=== PATIENT | male | born 1945 | race Caucasian/White ===

== ENCOUNTER 2022-03-12 07:04 | Inpatient (IN) | payer MEDICARE, OTHER ==
[~2022-03-12] VITALS: Ht 182.9 cm; Wt 68.0 kg
--- NOTE | 2022-03-12 07:20 | NUR ---
hooked to monitor
--- NOTE | 2022-03-12 07:30 | NUR ---
PT ARRIVING FROM [facility]: [id number] [phone] [place]
--- NOTE | 2022-03-12 07:30 | NUR ---
established iv line right ac 20g infusing
--- NOTE | 2022-03-12 07:51 | NUR ---
BLOOD DRAWN AND COLLECTED BY PHLEB AT BEDSIDE
--- NOTE | 2022-03-12 07:59 | NUR ---
dialysis access permacath present at right upper chest
--- NOTE | 2022-03-12 08:00 | NUR ---
per patient, do not use his left arm, for fistula placement.
--- NOTE | 2022-03-12 08:07 | NUR ---
covid swab taken sent to lab
[2022-03-12 08:17] LABS: BASOPHILS % (AUTO) 0.3 % (0.0-2.0); EOSINOPHILS % (AUTO) 0.1 % (0.0-6.0); HEMATOCRIT 30 % (39-51); HEMOGLOBIN 9.9 g/dL (13.5-17.5); LYMPHOCYTES # (AUTO) 0.2 K/uL (0.8-4.8); LYMPHOCYTES % (AUTO) 1.6 % (20.0-44.0); MEAN CORPUSCULAR HGB CONC 33 g/dl (31.0-36.0); MEAN CORPUSCULAR VOLUME 101 fL (80-96); MONOCYTES # (AUTO) 0.6 K/uL (0.1-1.30); NEUTROPHILS # (AUTO) 14.5 K/uL (1.8-8.9); PLATELET COUNT (AUTO) 225 K/uL (150-450); WHITE BLOOD COUNT (AUTO) 15.4 K/uL (4.3-11.0)
[2022-03-12 08:26] LABS: CALCIUM, SERUM 7.4 mg/dL (8.5-10.1); CARBON DIOXIDE 26 mmol/L (21-32); CHLORIDE 96 mmol/L (98-107); CREATININE 4.9 mg/dL (0.6-1.3); GLUCOSE 119 mg/dL (74-106); SODIUM SERUM 137 mmol/L (136-145); UREA NITROGEN, BLOOD 66 mg/dL (7-18)
--- NOTE | 2022-03-12 08:30 | NUR ---
MOVE SHEET SUBMITTED.
[2022-03-12] MEDS ORDERED: PANT40TA49 PO (09:20)
[2022-03-12] MEDS ORDERED: QUET100T PO (09:20)
[2022-03-12] MEDS ORDERED: PRED20TA PO (09:20)
[2022-03-12] MEDS ORDERED: MAGN400T26 PO (09:20)
[2022-03-12] MEDS ORDERED: ESCI10TA PO (09:20)
[2022-03-12] MEDS ORDERED: METO25TA20 PO (09:20)
[2022-03-12] MEDS ORDERED: DIAZ2TAB3 PO (09:20)
[2022-03-12] MEDS ORDERED: INSU100V7 SQ (09:20)
[2022-03-12] MEDS ORDERED: ROPI1TAB6 PO (09:20)
[2022-03-12] MEDS ORDERED: TAMS-12 PO (09:20)
[2022-03-12] MEDS ORDERED: LAMO150T6 PO (09:20)
[2022-03-12] MEDS ORDERED: INSU100I14 SQ (09:20)
[2022-03-12 09:45] LABS: MAGNESIUM 2.3 mg/dL (1.8-2.4); PHOSPHORUS 6.1 mg/dL (2.5-4.9)
--- NOTE | 2022-03-12 09:57 | NUR ---
development technician at bedside
--- NOTE | 2022-03-12 10:04 | NUR ---
DR HDZ SPEAKING W/ DR. DEGROOT
--- NOTE | 2022-03-12 11:00 | NUR ---
[facility] CALLED TENT WORKER PAGED.
[2022-03-12] MEDS ORDERED: Z GUARD REMEDY 4 OZ OINT TP PRN (12:00)
[2022-03-12] MEDS ORDERED: MAGNESIUM HYDROXIDE 30 ML UDC PO PRN (12:00)
[2022-03-12] MEDS ORDERED: ACETAMINOPHEN 325 MG TABLET PO PRN (12:00)
[2022-03-12] MEDS ORDERED: ONDANSETRON HCL/PF 4 MG/2 ML VIAL IVP PRN (12:00)
[2022-03-12] MEDS ORDERED: MAG HYDROX/AL HYDROX/SIMETH 30 ML UDC PO PRN (12:00)
[2022-03-12] MEDS: BLOOD SUGAR DIAGNOSTIC 1 EACH STRIP VI SCH ×2 (12:15→17:30)
--- NOTE | 2022-03-12 13:46 | NUR ---
PT RETURNED FROM RADIOLOGY
[2022-03-12] MEDS: CEFEPIME 1 GM in IV D5W 50 ML IV SCH (13:50)
--- NOTE | 2022-03-12 19:35 | NUR ---
RECEIVED REPORT FROM YAS MORILLO. PATIENT IS FOR ADMISSION. HE MISSED HD SINCE THURSDAY. CAME WITH CC OF GEN WEAKNESS. WITH IV LINE ON RIGHT AC G20. WITH RIGHT CHEST PERMACATH FOR HD. PATIENT IS AAOX4. ABLE TO MAKE NEEDS KNOWN. VITALS CHECKED.
--- NOTE | 2022-03-12 21:35 | NUR ---
RN NOTES KAT CALLED FROM ER AND GAVE REPORT AT 2134.
--- NOTE | 2022-03-12 21:37 | NUR ---
REPORT GIVEN TO YAS RAYMOND
--- NOTE | 2022-03-12 22:42 | NUR ---
URINE SPECIMEN SENT TO LAB
--- NOTE | 2022-03-12 22:50 | NUR ---
SHRIMP CLEANER NOTES RECEIVED PATIENT FROM ER VIA GHAZAL AT 2250 . PATIENT IS A/O TIMES 4. NO PAIN NOTED. NO SOB NOTED. NO DISTRESS NOTED.ON ROOM AIR AND TOLERATING WELL. VITAL SIGNS IN NORMAL RANGES. RIGHT CHEST WALL LUIS ALBERTO CATH INTACT AND PATNET. RIGHT AC 20 G IV SITE INTACT AND FLUSHING WELL SL. SKIN ASSESMENT DONE. NOTED WITH RIGHT AND LEFT BIG TOE DRYNESS.LEFT ARM SCAB AND RIGHT INDEX FINGER ABRASION. ALL THE BELONGINGS ACCOUNTED AND SIGNED FOR. ONE T SHIRT WAS MISSING. CALLED ER AND THEY DROP OFF THE T SHIRT. PATIENT WAS MAD FOR MISSING T SHIRT. ALL SAFETY MEASURES IN PLACE. BED LOCKED IN THE LOWEST POSITION. CALL LIGHT AND TABLE IN EASY REACH. SIDE RAILS UP TIMES 2. WILL CONTINUE TO MONITOR CLOSELY.
--- NOTE | 2022-03-12 22:54 | NUR ---
TRANSFERRED TO ROOM VIA ACLS
[2022-03-12 23:08] LABS: BILIRUBIN,URINE NEGATIVE (NEGATIVE); COLOR,URINE YELLOW (YELLOW); LEUKOCYTE ESTERASE ,URINE NEGATIVE (NEGATIVE); NITRITE, URINE NEGATIVE (NEGATIVE); PH,URINE 5.5 (5.0-8.0); PROTEIN,URINE 1+ mg/dl (NEGATIVE); UGLUCOSE TRACE mg/dL (NEGATIVE); UROBILINOGEN,URINE 0.2 EU/dL (0.2)
[2022-03-12 23:10] LABS: BACTERIA,URINE Few /HPF (None Seen); WBC,URINE 0-2 /HPF (0-3)
[2022-03-13] VITALS: BP 123/72
[2022-03-13 04:00] VITALS: BP 120/69
--- NOTE | 2022-03-13 06:17 | NUR ---
RN NOTES BLOOD SUGAR NOTED 159. PATIENT REFUSED INSULIN.OFFERED AND EXPLAINED, STILL REFUSING. RESPECT PATIENT'S RIGHT.
--- NOTE | 2022-03-13 06:36 | NUR ---
TREE CLIMBER CLOSING NOTES PATIENT IS A/O TIMES 4. RESTINH ON HIS BED.NO PAIN NOTED. NO SOB NOTED. NO DISTRESS NOTED.ON ROOM AIR AND TOLERATING WELL. VITAL SIGNS IN NORMAL RANGES. RIGHT CHEST WALL LUIS ALBERTO CATH INTACT AND PATNET. RIGHT AC 20 G IV SITE INTACT AND FLUSHING WELL SL. ALL SAFETY MEASURES IN PLACE. BED LOCKED IN THE LOWEST POSITION. CALL LIGHT AND TABLE IN EASY REACH. SIDE RAILS UP TIMES 2. WILL ENDORSE FOR VALDO..
[2022-03-13 07:00] LABS: BASOPHILS # (AUTO) 0.1 K/uL (0.0-0.2); BASOPHILS % (AUTO) 0.8 % (0.0-2.0); EOSINOPHILS % (AUTO) 0.2 % (0.0-6.0); HEMATOCRIT 29 % (39-51); HEMOGLOBIN 9.6 g/dL (13.5-17.5); LYMPHOCYTES # (AUTO) 0.2 K/uL (0.8-4.8); LYMPHOCYTES % (AUTO) 1.9 % (20.0-44.0); MEAN CORPUSCULAR HGB CONC 34 g/dl (31.0-36.0); MEAN CORPUSCULAR VOLUME 100 fL (80-96); MONOCYTES # (AUTO) 0.4 K/uL (0.1-1.30); MONOCYTES % (AUTO) 5.3 % (2.0-12.0); NEUTROPHILS # (AUTO) 7.5 K/uL (1.8-8.9); NEUTROPHILS % (AUTO) 91.8 % (43.0-81.0); PLATELET COUNT (AUTO) 188 K/uL (150-450); RED BLOOD CELL COUNT(AUTO) 2.88 MIL/uL (4.5-6.0); WHITE BLOOD COUNT (AUTO) 8.2 K/uL (4.3-11.0)
[2022-03-13 07:23] LABS: CALCIUM, SERUM 7.3 mg/dL (8.5-10.1); CARBON DIOXIDE 22 mmol/L (21-32); CHLORIDE 98 mmol/L (98-107); CREATININE 4.8 mg/dL (0.6-1.3); GLUCOSE 154 mg/dL (74-106); MAGNESIUM 2.4 mg/dL (1.8-2.4); PHOSPHORUS 6.7 mg/dL (2.5-4.9); POTASSIUM 3.7 mmol/L (3.5-5.1); SODIUM SERUM 139 mmol/L (136-145); UREA NITROGEN, BLOOD 71 mg/dL (7-18)
--- NOTE | 2022-03-13 07:40 | NUR ---
TELE OPENING RN NOTES RECEIVED PATIENT LYING IN BED, A/O TIMES 4. ON ROOM AIR AND TOLERATING WELL. NO SIGNS OF RESPIRATORY OR CARDIAC DISTRESS. RIGHT CHEST WALL LUIS ALBERTO CATH INTACT AND PATENT. RIGHT AC 20 G IV SITE INTACT AND FLUSHING WELL. ALL SAFETY MEASURES IN PLACE. BED LOCKED IN THE LOWEST POSITION. CALL LIGHT AND TABLE IN EASY REACH. SIDE RAILS UP TIMES 2. WILL CONTINUE TO MONITOR CLOSELY.
[2022-03-13 08:00] VITALS: BP 125/67
[2022-03-13] MEDS: BLOOD SUGAR DIAGNOSTIC 1 EACH STRIP VI SCH ×5 (08:53→21:35)
--- NOTE | 2022-03-13 09:07 | NUR ---
WOUND CARE CONSULT: PT PRESENTS WITH DRY WOUND TO RT INDEX FINGER AND DRY ESCHARS TO LEFT ARM, PRESENT ON ADMISSION. SURGICAL CONSULT CALLED TO DR SMITH. RECOMMENDATIONS MADE FOR SKIN PROTECTION. DISCUSSED WITH NURSING STAFF. MD IN AGREEMENT WITH PLAN OF CARE.
[2022-03-13] MEDS: CEFEPIME 1 GM in IV D5W 50 ML IV SCH (12:38)
[2022-03-13] MEDS: *INSULIN REGULAR(HUMULIN R)HUM 100 UNIT/ML VIAL SQ PRN (12:42)
[2022-03-13] MEDS: INSULIN REGULAR, HUMAN 100 UNIT/ML 3 ML VIAL SQ PRN (16:44)
--- NOTE | 2022-03-13 18:35 | NUR ---
TITLE LAWYER CLOSING NOTES PATIENT IS AWAKE, A/O X 4. NO C/O PAIN OR DISCOMFORT NOTED. NO SOB OR RESPIRATORY DISTRESS NOTED. ON ROOM AIR TOLERATING WELL AT 100% SPO2. VITAL SIGNS IN NORMAL RANGES. RIGHT CHEST WALL LUIS ALBERTO CATH INTACT AND PATENT. RIGHT AC 20 G IV SITE INTACT AND FLUSHING WELL SL. DUE MEDS GIVEN. BEHAVIORAL ISSUES NOTED SUCH YELLING, PATIENT KEPT ON ASKING FOR PSYCHIATRIC EVALUATION. STILL FOR PSYCH CONSULT. ALL SAFETY MEASURES IN PLACE. BED LOCKED IN THE LOWEST POSITION. CALL LIGHT AND TABLE IN EASY REACH. SIDE RAILS UP TIMES 2. WILL ENDORSE FOR VALDO..
--- NOTE | 2022-03-13 19:56 | NUR ---
TELE OPENING RN NOTES RECEIVED PATIENT LYING IN BED AAOX4 ABLE TO MAKE NEEDS KNOWN,ON ROOM AIR AND TOLERATING WELL. NO SIGNS SOB/DISTRESS NOTED,NO COMPLAIN OF PAIN/DISCOMFORT AT THIS TIME,RIGHT CHEST WALL LUIS ALBERTO CATH AND RIGHT AC 20 G IV SITE INTACT AND PATENT. ALL SAFETY MEASURES IN PLACE. BED LOCKED IN THE LOWEST POSITION. CALL LIGHT AND TABLE IN EASY REACH. SIDE RAILS UP TIMES 2. WILL CONTINUE TO MONITOR.
[2022-03-13 20:00] VITALS: BP 126/71
[2022-03-14] VITALS: BP 127/56
[2022-03-14 05:00] VITALS: BP 137/74
--- NOTE | 2022-03-14 06:19 | NUR ---
UPPERS EDGE BURNISHER CLOSING NOTE; PATIENT LYING IN BED AAOX4 ABLE TO MAKE NEEDS KNOWN,ON ROOM AIR AND TOLERATING WELL. NO SIGNS SOB/DISTRESS NOTED,NO COMPLAIN OF PAIN/DISCOMFORT DURING SHIFT,DUE MEDS GIVEN ORDER,ALL NEEDS ATTENED,RIGHT CHEST WALL LUIS ALBERTO CATH AND RIGHT AC 20 G IV SITE INTACT AND PATENT. ALL SAFETY MEASURES IN PLACE. BED LOCKED IN THE LOWEST POSITION. CALL LIGHT AND TABLE IN EASY REACH. SIDE RAILS UP TIMES 2. WILL ENDORSED TO NEXT SHIFT.
[2022-03-14] MEDS: INSULIN REGULAR, HUMAN 100 UNIT/ML 3 ML VIAL SQ PRN ×3 (06:44→17:47)
[2022-03-14] MEDS: BLOOD SUGAR DIAGNOSTIC 1 EACH STRIP VI SCH ×4 (06:49→22:27)
[2022-03-14 06:59] LABS: BASOPHILS # (AUTO) 0.1 K/uL (0.0-0.2); BASOPHILS % (AUTO) 0.9 % (0.0-2.0); EOSINOPHILS % (AUTO) 0.1 % (0.0-6.0); HEMATOCRIT 32 % (39-51); HEMOGLOBIN 10.6 g/dL (13.5-17.5); LYMPHOCYTES # (AUTO) 0.2 K/uL (0.8-4.8); LYMPHOCYTES % (AUTO) 2.6 % (20.0-44.0); MEAN CORPUSCULAR HGB CONC 33 g/dl (31.0-36.0); MEAN CORPUSCULAR VOLUME 103 fL (80-96); MONOCYTES # (AUTO) 0.5 K/uL (0.1-1.30); MONOCYTES % (AUTO) 5.8 % (2.0-12.0); NEUTROPHILS % (AUTO) 90.6 % (43.0-81.0); PLATELET COUNT (AUTO) 188 K/uL (150-450); RED BLOOD CELL COUNT(AUTO) 3.14 MIL/uL (4.5-6.0); WHITE BLOOD COUNT (AUTO) 8.8 K/uL (4.3-11.0)
[2022-03-14 07:32] LABS: CALCIUM, SERUM 7.7 mg/dL (8.5-10.1); CARBON DIOXIDE 20 mmol/L (21-32); CHLORIDE 101 mmol/L (98-107); GLUCOSE 170 mg/dL (74-106); POTASSIUM 3.7 mmol/L (3.5-5.1); SODIUM SERUM 141 mmol/L (136-145)
--- NOTE | 2022-03-14 07:45 | NUR ---
TELE OPENING RN NOTES RECEIVED PATIENT AWAKE IN BED, A/O TIMES 4. ON ROOM AIR AND TOLERATING WELL. NO SIGNS OF RESPIRATORY OR CARDIAC DISTRESS. RIGHT CHEST WALL LUIS ALBERTO CATH INTACT AND PATENT. RIGHT AC 20 G IV SITE INTACT AND FLUSHING WELL. ALL SAFETY MEASURES IN PLACE. BED LOCKED IN THE LOWEST POSITION. CALL LIGHT AND TABLE IN EASY REACH. SIDE RAILS UP TIMES 2. WILL CONTINUE TO MONITOR CLOSELY.
[2022-03-14 08:22] LABS: UREA NITROGEN, BLOOD 82 mg/dL (7-18)
[2022-03-14 08:27] VITALS: BP 118/72
[2022-03-14] MEDS ORDERED: NEPRO VAN 237 ML CAN PO PRN (11:30)
[2022-03-14] MEDS ORDERED: METOPROLOL TARTRATE 25 MG TABLET PO PRN (11:30)
[2022-03-14] MEDS: LamoTRIgine 100 MG TABLET PO SCH (12:18)
[2022-03-14] MEDS: CEFEPIME 1 GM in IV D5W 50 ML IV SCH (12:38)
[2022-03-14 16:06] VITALS: BP 110/70
--- NOTE | 2022-03-14 19:48 | NUR ---
NUTRITIONALIST CLOSING NOTES PATIENT IS AWAKE, A/O X 4. NO C/O PAIN OR DISCOMFORT NOTED. NO SOB OR RESPIRATORY DISTRESS NOTED. ON ROOM AIR TOLERATING WELL AT 95% SPO2. VITAL SIGNS IN NORMAL RANGES. RIGHT CHEST WALL LUIS ALBERTO CATH INTACT AND PATENT. RIGHT AC 20 G IV SITE INTACT AND FLUSHING WELL SL. DUE MEDS GIVEN. BEHAVIORAL ISSUES NOTED SUCH MD EVANGELINA AWARE. STILL FOR PSYCH CONSULT. ALL SAFETY MEASURES IN PLACE. BED LOCKED IN THE LOWEST POSITION. CALL LIGHT AND TABLE IN EASY REACH. SIDE RAILS UP TIMES 2. WILL ENDORSE FOR VALDO..
--- NOTE | 2022-03-14 19:49 | NUR ---
WHITE SUGAR SUPERVISOR OPENING NOTES RECEIVED PATIENT LAYING IN BED AWAKE. A/O X4. BREATHING EVEN AND NON-LABORED ON ROOM AIR. NOT IN APPARENT DISTRESS. NO PAIN OR DISCOMFORT NOTED. ON TELE MONITOR READING SINUS RHYTHM AT 70 BPM. HAS RIGHT ANTECUBITAL IV ACCESS #20G AND SALINE LOCKED. NO S/S OF INFILTRATION NOTED. HAS RIGHT CHEST WALL HD CATH. DRESSING C/D/I. SAFETY PRECAUTIONS IN PLACE: BED LOW AND LOCKED, SIDE RAILS UP X2, CALL LIGHT WITHIN REACH.
[2022-03-14 20:00] VITALS: BP 115/61
[2022-03-14] MEDS: CHLORHEXIDINE GLUCONATE 15 ML UDC MM SCH (20:00)
[2022-03-14] MEDS: MUPIROCIN OINT 2% 22 GM TUBE NS SCH (20:43)
[2022-03-14] MEDS ORDERED: MUPIROCIN OINT 2% 22 GM TUBE NS SCH (21:00)
[2022-03-14] MEDS ORDERED: VANCOMYCIN 1 GM in IV D5W 250 ML IV ONE (21:00)
[2022-03-14] MEDS: INSULIN GLARGINE, 100 UNIT/ML CARTRIDGE SQ SCH (22:00)
[2022-03-14] MEDS ORDERED: QUETIAPINE FUMARATE 100 MG TABLET PO SCH (22:00)
[2022-03-14] MEDS: DIAZEPAM 2 MG TABLET PO SCH (22:07)
[2022-03-14] MEDS: TAMSULOSIN 0.4 MG CAP.SR.24H PO SCH (22:07)
--- NOTE | 2022-03-14 22:27 | NUR ---
PLC CONTROLS ENGINEER NOTES BS 83, NO LANTUS AND REGULAR INSULIN COVERAGE GIVEN.
[2022-03-14] MEDS: *INSULIN REGULAR(HUMULIN R)HUM 100 UNIT/ML VIAL SQ PRN (22:28)
[2022-03-15] VITALS: BP 106/50
--- NOTE | 2022-03-15 00:57 | NUR ---
CUSTOMER CARE SPECIALIST NOTES PATIENT C/O NOT BEING ABLE TO SLEEP SINCE THURSDAY. NOTIFIED HOSPITALIST RAH BRUNNER AND ORDERED RESTORIL 15MG PO PRN HS. NOTED AND CARRIED OUT.
[2022-03-15] MEDS ORDERED: TEMAZEPAM 15 MG CAPSULE PO PRN (01:00)
--- NOTE | 2022-03-15 01:00 | NUR ---
COMMERCIAL PROJECT MANAGER NOTES HD STARTED AT 2250 AND ENDED AT 0050. TOTAL OF 1L OUTPUT. PATIENT SLEPT THROUGHOUT THE NIGHT WITHOUT TAKING ANY PRN MED.
--- NOTE | 2022-03-15 06:44 | NUR ---
PALEONTOLOGICAL HELPER CLOSING NOTES PATIENT LAYING IN BED ASLEEP, EASY TO AROUSE. ABLE TO VERBALIZE NEEDS BUT EASILY AGITATED. STABLE THROUGHOUT THE SHIFT. AFEBRILE. ON TELE MONITOR READING SINUS RHYTHM WITH PVC AT 63 BPM. RIGHT ANTECUBITAL IV ACCESS #20G INTACT, PATENT AND FLUSHING. RIGHT CHEST WALL HD CATHETER DRESSING C/D/I. ALL DUE MEDS GIVEN AND NEEDS ATTENDED. SAFETY PRECAUTIONS MAINTAINED. WILL ENDORSE TO NEXT SHIFT FOR VALDO.
[2022-03-15] MEDS: BLOOD SUGAR DIAGNOSTIC 1 EACH STRIP VI SCH ×4 (06:51→22:00)
[2022-03-15] MEDS: INSULIN REGULAR, HUMAN 100 UNIT/ML 3 ML VIAL SQ PRN ×2 (06:54→17:48)
[2022-03-15 08:00] VITALS: BP 96/43
--- NOTE | 2022-03-15 08:28 | NUR ---
TELE OPENING RN NOTES RECEIVED PATIENT AWAKE IN BED, A/O TIMES 4. ON ROOM AIR AND TOLERATING WELL. NO SIGNS OF RESPIRATORY OR CARDIAC DISTRESS. RIGHT CHEST WALL LUIS ALBERTO CATH INTACT AND PATENT. RIGHT AC 20 G IV SITE INTACT AND FLUSHING WELL. ALL SAFETY MEASURES IN PLACE. BED LOCKED IN THE LOWEST POSITION. CALL LIGHT AND TABLE IN EASY REACH. SIDE RAILS UP TIMES 3. WILL CONTINUE TO MONITOR CLOSELY. PT STATED,"I CANNOT EAT FOOD. I HAVE DAMAGE TO INSIDE MY MOUTH THAT STOPS ME FROM EATING. I CAN DRINK LIQUIDS AND SWALLOW PILLS.". PT HAS SCDs ON BOTH LOWER LEGS. WILL CONTINUE TO MONITOR CLOSELY.
[2022-03-15] MEDS ORDERED: ESCITALOPRAM OXALATE (10 MG) 10 MG TABLET PO SCH (09:00)
[2022-03-15 09:29] LABS: BASOPHILS % (AUTO) 0.2 % (0.0-2.0); EOSINOPHILS % (AUTO) 0.3 % (0.0-6.0); HEMATOCRIT 29 % (39-51); HEMOGLOBIN 9.1 g/dL (13.5-17.5); LYMPHOCYTES # (AUTO) 0.2 K/uL (0.8-4.8); LYMPHOCYTES % (AUTO) 3.4 % (20.0-44.0); MEAN CORPUSCULAR HGB CONC 32 g/dl (31.0-36.0); MEAN CORPUSCULAR VOLUME 107 fL (80-96); MONOCYTES # (AUTO) 0.2 K/uL (0.1-1.30); MONOCYTES % (AUTO) 2.7 % (2.0-12.0); NEUTROPHILS # (AUTO) 6.5 K/uL (1.8-8.9); NEUTROPHILS % (AUTO) 93.4 % (43.0-81.0); PLATELET COUNT (AUTO) 110 K/uL (150-450); RED BLOOD CELL COUNT(AUTO) 2.67 MIL/uL (4.5-6.0); WHITE BLOOD COUNT (AUTO) 6.9 K/uL (4.3-11.0)
[2022-03-15 09:43] LABS: CALCIUM, SERUM 8.3 mg/dL (8.5-10.1); CARBON DIOXIDE 22 mmol/L (21-32); CHLORIDE 102 mmol/L (98-107); CREATININE 3.5 mg/dL (0.6-1.3); GLUCOSE 165 mg/dL (74-106); POTASSIUM 3.9 mmol/L (3.5-5.1); SODIUM SERUM 138 mmol/L (136-145); UREA NITROGEN, BLOOD 54 mg/dL (7-18)
[2022-03-15] MEDS: predniSONE 20 MG TABLET PO SCH (09:44)
[2022-03-15] MEDS: LamoTRIgine 100 MG TABLET PO SCH (09:45)
[2022-03-15] MEDS: MAGNESIUM OXIDE 400 MG TABLET PO SCH (09:45)
[2022-03-15] MEDS: CHLORHEXIDINE GLUCONATE 15 ML UDC MM SCH ×2 (09:46→17:45)
[2022-03-15] MEDS: MUPIROCIN OINT 2% 22 GM TUBE NS SCH ×2 (10:24→21:32)
[2022-03-15] MEDS: PANTOPRAZOLE 40 MG TABLET.DR PO SCH (10:30)
[2022-03-15 12:00] VITALS: BP 87/44
[2022-03-15] MEDS: CEFEPIME 1 GM in IV D5W 50 ML IV SCH (12:20)
[2022-03-15 12:34] LABS: BAND % (MANUAL) 5 % (0.0-5.0); EOSINOPHILS % (MANUAL) 1 % (0-4); LYMPHOCYTES % (MANUAL) 6 % (16-48); MONOCYTES % (MANUAL) 2 % (0-11.0); NEUTROPHILS % (MANUAL) 86 (42-76)
[2022-03-15] MEDS: QUETIAPINE FUMARATE 25 MG TABLET PO SCH ×2 (13:28→17:45)
[2022-03-15 16:00] VITALS: BP 85/51
--- NOTE | 2022-03-15 16:33 | NUR ---
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 Patient refusing to eat solid food and shakes, only drinking water and juice. Noftified LC Segura about patient's poor PO intake, refusing chlorhexidine mouthwash and mouth pain. LC Segura replied, " No new orders." Did examine patient's mouth with flashlight and could not see any mouth sores, fungal growth , nor any signs of infection. Will continue to monitor and encourage patient.
[2022-03-15] MEDS: ALBUMIN 25% 25 GM in PREMIX 1 EA IV PRN (18:11)
--- NOTE | 2022-03-15 18:52 | NUR ---
EXT JS DEVELOPER CLOSING NOTE PATIENT LAYING IN BED ASLEEP, EASY TO AROUSE. ABLE TO VERBALIZE NEEDS BUT EASILY AGITATED. HYPOTENSIVE THIS AFTERNOON /EVENING. ALBUMIN INFUSION GIVEN BY HEMODIALYSIS NURSE. STABLE THROUGHOUT THE SHIFT. AFEBRILE. ON TELE MONITOR READING SINUS RHYTHM IN THE 70S, PT REMOVED HIS TELE BOX NOW. RIGHT ANTECUBITAL IV ACCESS #20G INTACT, PATENT AND FLUSHING. RIGHT CHEST WALL HD CATHETER DRESSING C/D/I. ALL DUE MEDS GIVEN, EXCEPT PT REFUSING CHLORHEXIDINE MOUTHWASH. HOSPITALIST NPO JACKIE AWARE OF PT REFUSAL AND POOR PO FOOD INTAKE. PATIENT NEEDS ATTENDED. VOIDING IN URINAL. SAFETY PRECAUTIONS MAINTAINED. WILL ENDORSE TO NEXT SHIFT FOR VALDO.
--- NOTE | 2022-03-15 19:15 | NUR ---
MANAGER IT TRAINING OPENING NOTES RECEIVED PATIENT LAYING IN BED UNDERGOING HD. A/O X3 WITH PERIODS OF CONFUSION AND AGITATION. BREATHING EVEN AND NON-LABORED ON ROOM AIR. NOT IN APPARENT DISTRESS. NO C/O PAIN OR DISCOMFORT. TELE MONITOR STILL DISCONNECTED. HAS RIGHT ANTECUBITAL IV ACCESS #20G AND SALINE LOCKED. NO S/S OF INFILTRATION NOTED. HAS RIGHT CHEST WALL HD CATH. SAFETY PRECAUTIONS IN PLACE: BED IN LOWEST POSITION AND LOCKED, SIDE RAILS UP X3, CALL LIGHT WITHIN REACH. WILL CONTINUE POC.
[2022-03-15 20:00] VITALS: BP 94/56
[2022-03-15] MEDS: DIAZEPAM 2 MG TABLET PO SCH (21:25)
[2022-03-15] MEDS: TAMSULOSIN 0.4 MG CAP.SR.24H PO SCH (21:25)
[2022-03-15] MEDS: QUETIAPINE FUMARATE 100 MG TABLET PO SCH (21:25)
[2022-03-15] MEDS: INSULIN GLARGINE, 100 UNIT/ML CARTRIDGE SQ SCH (22:00)
[2022-03-16] VITALS: BP 96/46
[2022-03-16] MEDS: VANCOMYCIN 500 MG in IV D5W 100 ML IV PRN ×2 (00:03→22:23)
[2022-03-16] MEDS: *INSULIN REGULAR(HUMULIN R)HUM 100 UNIT/ML VIAL SQ PRN ×3 (00:14→21:38)
--- NOTE | 2022-03-16 00:15 | NUR ---
CONFERENCE PRODUCER NOTES NO REGULAR INSULIN COVERAGE GIVEN AT 2200 SINCE PATIENT IS NOT EATING WELL.
[2022-03-16 04:00] VITALS: BP 96/45
[2022-03-16] MEDS: BLOOD SUGAR DIAGNOSTIC 1 EACH STRIP VI SCH ×4 (06:46→21:36)
[2022-03-16] MEDS: INSULIN REGULAR, HUMAN 100 UNIT/ML 3 ML VIAL SQ PRN ×2 (06:46→18:43)
--- NOTE | 2022-03-16 06:47 | NUR ---
DIGITAL PRINTER NOTES NO REGULAR INSULIN COVERAGE GIVEN D/T POOR PO INTAKE. BS 143
--- NOTE | 2022-03-16 06:53 | NUR ---
TRANSLATOR AND INTERPRETER CLOSING NOTES PATIENT ASLEEP IN BED, EASY TO AROUSE. ABLE TO VERBALIZE NEEDS BUT SPEECH IS UNCLEAR. STABLE THROUGHOUT THE SHIFT. SATURATING AT 97% ON ROOM AIR. AFEBRILE. ON TELE MONITOR READING SINUS RHYTHM AT 64 BPM. RIGHT ANTECUBITAL IV ACCESS REMOVED D/T LEAKING. HAS RIGHT FOREARM IV ACCESS #22G INTACT, PATENT AND FLUSHING. RIGHT CHEST WALL PERMACATH DRESSING C/D/I. ENCOURAGED INCREASE PO INTAKE BUT PATIENT SPITS OUT HIS FOOD. PERINEAL CARE RENDERED. ALL DUE MEDS GIVEN AND NEEDS ATTENDED. SAFETY PRECAUTIONS MAINTAINED. WILL ENDORSE TO NEXT SHIFT FOR VALDO.
[2022-03-16 07:00] LABS: CALCIUM, SERUM 7.6 mg/dL (8.5-10.1); CARBON DIOXIDE 25 mmol/L (21-32); CHLORIDE 107 mmol/L (98-107); CREATININE 2.7 mg/dL (0.6-1.3); GLUCOSE 157 mg/dL (74-106); POTASSIUM 4.3 mmol/L (3.5-5.1); SODIUM SERUM 141 mmol/L (136-145); UREA NITROGEN, BLOOD 35 mg/dL (7-18)
[2022-03-16 08:00] VITALS: BP 98/73
[2022-03-16] MEDS: MUPIROCIN OINT 2% 22 GM TUBE NS SCH ×2 (09:00→20:49)
[2022-03-16] MEDS: CHLORHEXIDINE GLUCONATE 15 ML UDC MM SCH ×2 (09:56→18:49)
[2022-03-16] MEDS: MAGNESIUM OXIDE 400 MG TABLET PO SCH (09:56)
[2022-03-16] MEDS: QUETIAPINE FUMARATE 25 MG TABLET PO SCH ×2 (09:58→18:49)
[2022-03-16] MEDS: LamoTRIgine 100 MG TABLET PO SCH (09:58)
[2022-03-16] MEDS: predniSONE 20 MG TABLET PO SCH (09:58)
[2022-03-16] MEDS: PANTOPRAZOLE 40 MG TABLET.DR PO SCH (10:03)
[2022-03-16 12:00] VITALS: BP 93/49
[2022-03-16] MEDS: CEFEPIME 1 GM in IV D5W 50 ML IV SCH (14:35)
[2022-03-16 16:00] VITALS: BP 88/42
--- NOTE | 2022-03-16 19:59 | NUR ---
DIRECT SUPPORT WORKER OPENING NOTES RECEIVED PATIENT LAYING IN BED ASLEEP, EASY TO AROUSE. A/O X3, FORGETFUL. BREATHING EVEN AND NON-LABORED ON ROOM AIR. NOT IN APPARENT DISTRESS. NO C/O PAIN OR DISCOMFORT. ON TELE MONITOR READING SINUS RHYTHM AT 71 BPM. HAS RIGHT FOREARM IV ACCESS #22G AND SALINE LOCKED. NO S/S OF INFILTRATION NOTED. HAS RIGHT CHEST WALL HD CATH. SAFETY PRECAUTIONS IN PLACE: BED LOCKED AND IN LOWEST POSITION, SIDE RAILS UP X3, CALL LIGHT WITHIN REACH. WILL CONTINUE POC.
[2022-03-16 20:00] VITALS: BP 129/68
[2022-03-16] MEDS: DIAZEPAM 2 MG TABLET PO SCH (21:07)
[2022-03-16] MEDS: QUETIAPINE FUMARATE 100 MG TABLET PO SCH (21:08)
[2022-03-16] MEDS: TAMSULOSIN 0.4 MG CAP.SR.24H PO SCH (21:08)
[2022-03-16] MEDS: INSULIN GLARGINE, 100 UNIT/ML CARTRIDGE SQ SCH (21:37)
--- NOTE | 2022-03-16 22:11 | NUR ---
MORTGAGE CLERK NOTES NO REGULAR INSULIN AND LANTUS COVERAGE GIVEN. BS 86 AND PATIENT HAS MINIMAL FOOD INTAKE.
[2022-03-17] VITALS: BP_SYST 107; BP_SYST 56; BP_DIAS 56
[2022-03-17 04:00] VITALS: BP 110/67
[2022-03-17] MEDS: BLOOD SUGAR DIAGNOSTIC 1 EACH STRIP VI SCH ×4 (06:30→22:01)
[2022-03-17] MEDS: INSULIN REGULAR, HUMAN 100 UNIT/ML 3 ML VIAL SQ PRN (06:30)
[2022-03-17 07:08] LABS: CALCIUM, SERUM 7.8 mg/dL (8.5-10.1); CARBON DIOXIDE 28 mmol/L (21-32); CHLORIDE 107 mmol/L (98-107); CREATININE 2.2 mg/dL (0.6-1.3); GLUCOSE 107 mg/dL (74-106); POTASSIUM 3.8 mmol/L (3.5-5.1); SODIUM SERUM 143 mmol/L (136-145); UREA NITROGEN, BLOOD 26 mg/dL (7-18)
--- NOTE | 2022-03-17 07:13 | NUR ---
RESEARCH LIBRARIAN CLOSING NOTES PATIENT LAYING IN BED ASLEEP, EASY TO AROUSE. PERIODS OF CONFUSION NOTED. SLEPT THROUGHOUT THE SHIFT. NO UNUSUAL BEHAVIOR NOTED. NO C/O PAIN, N/V. AFEBRILE. ON TELE MONITOR READING SINUS RHYTHM AT 62 BPM. RIGHT ANTECUBITAL IV ACCESS #22G INTACT, PATENT AND FLUSHING. ALL DUE MEDS GIVEN AND NEEDS ATTENDED. SAFETY PRECAUTIONS MAINTAINED. WILL ENDORSE TO NEXT SHIFT FOR VALDO.
[2022-03-17 08:00] VITALS: BP 97/56
[2022-03-17] MEDS: predniSONE 20 MG TABLET PO SCH (10:52)
[2022-03-17] MEDS: CHLORHEXIDINE GLUCONATE 15 ML UDC MM SCH ×2 (10:52→17:00)
[2022-03-17] MEDS: QUETIAPINE FUMARATE 25 MG TABLET PO SCH ×2 (10:52→18:05)
[2022-03-17] MEDS: MAGNESIUM OXIDE 400 MG TABLET PO SCH (10:53)
[2022-03-17] MEDS: LamoTRIgine 100 MG TABLET PO SCH (10:53)
[2022-03-17] MEDS: PANTOPRAZOLE 40 MG TABLET.DR PO SCH (11:01)
[2022-03-17] MEDS: MUPIROCIN OINT 2% 22 GM TUBE NS SCH ×2 (11:03→21:53)
[2022-03-17 12:00] VITALS: BP 105/72
[2022-03-17] MEDS: ALBUMIN 25% 25 GM in PREMIX 1 EA IV PRN (13:19)
[2022-03-17 16:00] VITALS: BP 88/62
[2022-03-17] MEDS: VANCOMYCIN 500 MG in IV D5W 100 ML IV PRN (18:06)
[2022-03-17] MEDS: CEFEPIME 1 GM in IV D5W 50 ML IV SCH (18:06)
--- NOTE | 2022-03-17 19:40 | NUR ---
SKIING TEACHER OPENING NOTE RECEIVED PATIENT SLEEPING IN BED, EASY TO AROUSE. PT A/O X3, FORGETFUL; ABLE TO MAKE NEEDS KNOWN. BREATHING EVEN AND NON-LABORED, ON ROOM AIR. NO RESPIRATORY DISTRESS, NO C/O PAIN OR DISCOMFORT AT THIS TIME. ON TELE MONITOR READING SINUS RHYTHM. RIGHT AC IV ACCESS #22G, SALINE LOCKED. NO S/S OF INFILTRATION NOTED. HAS RIGHT CHEST WALL HD CATH. SAFETY PRECAUTIONS IN PLACE: BED LOCKED, AND IN LOWEST POSITION, SIDE RAILS UP X3, CALL LIGHT WITHIN REACH. WILL CONTINUE TO MONITOR PT.
[2022-03-17 20:00] VITALS: BP 83/41
[2022-03-17] MEDS: DIAZEPAM 2 MG TABLET PO SCH (21:59)
[2022-03-17] MEDS: TAMSULOSIN 0.4 MG CAP.SR.24H PO SCH (21:59)
[2022-03-17] MEDS: QUETIAPINE FUMARATE 100 MG TABLET PO SCH (21:59)
[2022-03-17] MEDS: INSULIN GLARGINE, 100 UNIT/ML CARTRIDGE SQ SCH (22:24)
[2022-03-17] MEDS: *INSULIN REGULAR(HUMULIN R)HUM 100 UNIT/ML VIAL SQ PRN (22:26)
[2022-03-18] VITALS: BP 87/72
[2022-03-18 04:00] VITALS: BP 115/53
--- NOTE | 2022-03-18 06:55 | NUR ---
AUXILIARY EQUIPMENT TENDER CLOSING NOTE PATIENT LAYING IN BED ASLEEP, EASY TO AROUSE. WITH PERIODS OF CONFUSION. SLEPT THROUGHOUT THE SHIFT. NO C/O PAIN, N/V. ON TELE MONITOR READING SINUS RHYTHM. RIGHT ANTECUBITAL IV ACCESS #22G INTACT, PATENT AND FLUSHING. ALL DUE MEDS GIVEN, AND NEEDS ATTENDED. SAFETY PRECAUTIONS MAINTAINED. WILL ENDORSE TO NEXT SHIFT NURSE FOR VALDO.
[2022-03-18] MEDS: PANTOPRAZOLE 40 MG TABLET.DR PO SCH (07:30)
[2022-03-18 07:48] LABS: CALCIUM, SERUM 7.9 mg/dL (8.5-10.1); CARBON DIOXIDE 28 mmol/L (21-32); CHLORIDE 109 mmol/L (98-107); CREATININE 2.1 mg/dL (0.6-1.3); GLUCOSE 60 mg/dL (74-106); POTASSIUM 3.6 mmol/L (3.5-5.1); SODIUM SERUM 143 mmol/L (136-145); UREA NITROGEN, BLOOD 17 mg/dL (7-18)
[2022-03-18] MEDS: BLOOD SUGAR DIAGNOSTIC 1 EACH STRIP VI SCH ×4 (07:54→23:12)
[2022-03-18] MEDS: INSULIN REGULAR, HUMAN 100 UNIT/ML 3 ML VIAL SQ PRN (08:02)
[2022-03-18] MEDS: MUPIROCIN OINT 2% 22 GM TUBE NS SCH ×2 (09:00→21:57)
[2022-03-18] MEDS: CHLORHEXIDINE GLUCONATE 15 ML UDC MM SCH ×2 (09:00→17:00)
[2022-03-18] MEDS: predniSONE 20 MG TABLET PO SCH (10:20)
[2022-03-18] MEDS: MAGNESIUM OXIDE 400 MG TABLET PO SCH (10:22)
[2022-03-18] MEDS: QUETIAPINE FUMARATE 25 MG TABLET PO SCH ×2 (10:22→17:44)
[2022-03-18] MEDS: LamoTRIgine 100 MG TABLET PO SCH (10:23)
[2022-03-18] MEDS: CEFEPIME 1 GM in IV D5W 50 ML IV SCH (12:39)
[2022-03-18] MEDS: QUETIAPINE FUMARATE 100 MG TABLET PO SCH (21:58)
[2022-03-18] MEDS: DIAZEPAM 2 MG TABLET PO SCH (21:58)
[2022-03-18] MEDS: TAMSULOSIN 0.4 MG CAP.SR.24H PO SCH (21:58)
[2022-03-18] MEDS: *INSULIN REGULAR(HUMULIN R)HUM 100 UNIT/ML VIAL SQ PRN (23:07)
[2022-03-18] MEDS: INSULIN GLARGINE, 100 UNIT/ML CARTRIDGE SQ SCH (23:11)
[2022-03-19] MEDS: BLOOD SUGAR DIAGNOSTIC 1 EACH STRIP VI SCH ×4 (06:26→21:38)
[2022-03-19] MEDS: INSULIN REGULAR, HUMAN 100 UNIT/ML 3 ML VIAL SQ PRN ×4 (06:30→21:39)
--- NOTE | 2022-03-19 07:11 | NUR ---
BISQUE BRUSHER CLOSING NOTE LEFT PATIENT LAYING IN BED ASLEEP, EASY TO AROUSE. NO C/O PAIN, N/V. ON TELE MONITOR READING SINUS RHYTHM, HR: 72. RIGHT UPPER ARM MIDLINE #18G INTACT, PATENT AND FLUSHING. PT'S BS: 62. APPLE JUICE GIVEN TO PT. SAFETY PRECAUTIONS MAINTAINED. WILL ENDORSE TO NEXT SHIFT NURSE FOR VALDO.
[2022-03-19 07:14] LABS: CALCIUM, SERUM 7.8 mg/dL (8.5-10.1); CARBON DIOXIDE 28 mmol/L (21-32); CHLORIDE 112 mmol/L (98-107); GLUCOSE 72 mg/dL (74-106); MAGNESIUM 2.4 mg/dL (1.8-2.4); PHOSPHORUS 1.9 mg/dL (2.5-4.9); SODIUM SERUM 146 mmol/L (136-145); UREA NITROGEN, BLOOD 15 mg/dL (7-18)
--- NOTE | 2022-03-19 07:40 | NUR ---
COLLAR TURNER OPERATOR OPENING NOTE PATIENT IN BED, AWAKE. PT A/O X3, FORGETFUL; ABLE TO MAKE NEEDS KNOWN. BREATHING EVEN AND NON-LABORED, ON ROOM AIR. NO RESPIRATORY DISTRESS, NO C/O PAIN OR DISCOMFORT AT THIS TIME. ON TELE MONITOR READING SINUS RHYTHM. RIGHT AC IV ACCESS #22G, SALINE LOCKED. NO S/S OF INFILTRATION NOTED. HAS RIGHT CHEST WALL HD CATH. SAFETY PRECAUTIONS IN PLACE: BED LOCKED, AND IN LOWEST POSITION, SIDE RAILS UP X3, CALL LIGHT WITHIN REACH. WILL CONTINUE TO MONITOR ACCORDINGLY.
[2022-03-19 08:00] VITALS: BP 139/72
[2022-03-19 08:36] LABS: BASOPHILS % (AUTO) 0.5 % (0.0-2.0); EOSINOPHILS % (AUTO) 0.2 % (0.0-6.0); LYMPHOCYTES # (AUTO) 0.2 K/uL (0.8-4.8); LYMPHOCYTES % (AUTO) 4.8 % (20.0-44.0); MEAN CORPUSCULAR HGB CONC 33 g/dl (31.0-36.0); MEAN CORPUSCULAR VOLUME 101 fL (80-96); MONOCYTES # (AUTO) 0.2 K/uL (0.1-1.30); NEUTROPHILS % (AUTO) 89.5 % (43.0-81.0); PLATELET COUNT (AUTO) 100 K/uL (150-450); RED BLOOD CELL COUNT(AUTO) 2.02 MIL/uL (4.5-6.0); WHITE BLOOD COUNT (AUTO) 4.5 K/uL (4.3-11.0)
[2022-03-19] MEDS: PANTOPRAZOLE 40 MG TABLET.DR PO SCH (08:36)
[2022-03-19] MEDS: predniSONE 20 MG TABLET PO SCH (08:37)
[2022-03-19] MEDS: MAGNESIUM OXIDE 400 MG TABLET PO SCH (08:37)
[2022-03-19] MEDS: LamoTRIgine 100 MG TABLET PO SCH (08:37)
[2022-03-19] MEDS: CHLORHEXIDINE GLUCONATE 15 ML UDC MM SCH ×2 (08:37→17:00)
[2022-03-19] MEDS: QUETIAPINE FUMARATE 25 MG TABLET PO SCH ×2 (08:37→18:04)
[2022-03-19 08:44] LABS: HEMATOCRIT 20 % (39-51); HEMOGLOBIN 6.8 g/dL (13.5-17.5)
[2022-03-19] MEDS: MUPIROCIN OINT 2% 22 GM TUBE NS SCH ×2 (09:00→21:29)
[2022-03-19] MEDS: NEOMY SULF/BACITRAC ZN/POLY 15 GM TUBE TP SCH (12:37)
[2022-03-19 16:41] LABS: BASOPHILS % (AUTO) 0.5 % (0.0-2.0); EOSINOPHILS % (AUTO) 0.1 % (0.0-6.0); HEMATOCRIT 22 % (39-51); HEMOGLOBIN 7.2 g/dL (13.5-17.5); LYMPHOCYTES # (AUTO) 0.2 K/uL (0.8-4.8); LYMPHOCYTES % (AUTO) 2.1 % (20.0-44.0); MEAN CORPUSCULAR HGB CONC 33 g/dl (31.0-36.0); MEAN CORPUSCULAR VOLUME 102 fL (80-96); MONOCYTES # (AUTO) 0.1 K/uL (0.1-1.30); MONOCYTES % (AUTO) 1.9 % (2.0-12.0); NEUTROPHILS # (AUTO) 7.1 K/uL (1.8-8.9); NEUTROPHILS % (AUTO) 95.4 % (43.0-81.0); PLATELET COUNT (AUTO) 114 K/uL (150-450); RED BLOOD CELL COUNT(AUTO) 2.17 MIL/uL (4.5-6.0); WHITE BLOOD COUNT (AUTO) 7.4 K/uL (4.3-11.0)
[2022-03-19 17:26] LABS: BAND % (MANUAL) 2 % (0.0-5.0); EOSINOPHILS % (MANUAL) 1 % (0-4); LYMPHOCYTES % (MANUAL) 5 % (16-48); MONOCYTES % (MANUAL) 4 % (0-11.0); NEUTROPHILS % (MANUAL) 88 (42-76)
--- NOTE | 2022-03-19 19:03 | NUR ---
TUBE DRAW HELPER CLOSING NOTE PATIENT IN BED AWAKE, A/OX3-4. NO C/O PAIN, N/V. ON TELE MONITOR READING SINUS RHYTHM, HR: 85. RIGHT UPPER ARM MIDLINE #18G INTACT, PATENT AND FLUSHING. SAFETY PRECAUTIONS MAINTAINED.ALL DUE MEDS GIVEN. WILL ENDORSE TO NEXT SHIFT NURSE FOR VALDO.
--- NOTE | 2022-03-19 19:56 | NUR ---
RN OPENING NOTE PATIENT AWAKE IN BED. A/OX3. NO S/S OF DISTRESS, BREATHING WITHOUT DIFFICULTY ON ROOM AIR. RAC #22 SL INTACT AND PATENT; RCW PERMACATH. TELE READS SR 87. SAFETY MEASURES IN PLACE: BED LOCKED AND AT LOWEST POSITION, RAILS UP X2, CALL LAWRENCE WITHIN REACH. WILL CONTINUE TO MONITOR PATIENT.
[2022-03-19 20:00] VITALS: BP 115/73
--- NOTE | 2022-03-19 20:34 | NUR ---
RN CLOSING NOTE PATIENT AWAKE IN BED. A/OX3. NO S/S OF DISTRESS, BREATHING WITHOUT DIFFICULTY ON ROOM AIR. RAC #22 SL INTACT AND PATENT; RCW PERMACATH. TELE READS SR 85. SAFETY MEASURES IN PLACE: BED LOCKED AND AT LOWEST POSITION, RAILS UP X2, CALL LAWRENCE WITHIN REACH. ENDORSED.
[2022-03-19] MEDS: TAMSULOSIN 0.4 MG CAP.SR.24H PO SCH (21:29)
[2022-03-19] MEDS: QUETIAPINE FUMARATE 100 MG TABLET PO SCH (21:30)
[2022-03-19] MEDS: INSULIN GLARGINE, 100 UNIT/ML CARTRIDGE SQ SCH (21:33)
[2022-03-19] MEDS: DIAZEPAM 2 MG TABLET PO SCH (21:38)
[2022-03-19 21:59] LABS: LYMPHOCYTES % (MANUAL) 2 % (16-48); MONOCYTES % (MANUAL) 1 % (0-11.0); NEUTROPHILS % (MANUAL) 97 (42-76)
[2022-03-20] VITALS: BP 102/57
[2022-03-20 04:00] VITALS: BP 105/48
[2022-03-20] MEDS: DEXTROSE 50%-WATER 50 ML DISP.SYRIN IV PRN (05:39)
--- NOTE | 2022-03-20 06:56 | NUR ---
RN CLOSING NOTE PATIENT AWAKE IN BED. A/OX3. NO S/S OF DISTRESS, BREATHING WITHOUT DIFFICULTY ON ROOM AIR. R-WRIST #22 SL INTACT AND PATENT. TELE READS SR 72. SAFETY MEASURES IN PLACE: BED LOCKED AND IN PLACE, RAILS UP X2, CALL LAWRENCE WITHIN REACH. WILL ENDORSE TO NEXT SHIFT FOR VALDO.
[2022-03-20] MEDS: BLOOD SUGAR DIAGNOSTIC 1 EACH STRIP VI SCH ×4 (07:02→21:50)
[2022-03-20] MEDS: INSULIN REGULAR, HUMAN 100 UNIT/ML 3 ML VIAL SQ PRN ×3 (07:02→18:00)
--- NOTE | 2022-03-20 07:45 | NUR ---
RN OPENING NOTE PATIENT AWAKE IN BED. A/OX3. NO S/S OF DISTRESS, BREATHING WITHOUT DIFFICULTY ON ROOM AIR, TOLERATING WELL. R-WRIST #22 SL INTACT AND PATENT. TELE READS SR ON 70'S. SAFETY MEASURES IN PLACE: BED LOCKED AND IN PLACE, RAILS UP X2, CALL LAWRENCE WITHIN REACH. TO MONITOR.
[2022-03-20] MEDS: PANTOPRAZOLE 40 MG TABLET.DR PO SCH (08:22)
[2022-03-20] MEDS: CHLORHEXIDINE GLUCONATE 15 ML UDC MM SCH ×2 (08:22→17:46)
[2022-03-20] MEDS: MAGNESIUM OXIDE 400 MG TABLET PO SCH (08:23)
[2022-03-20] MEDS: predniSONE 20 MG TABLET PO SCH (08:23)
[2022-03-20] MEDS: QUETIAPINE FUMARATE 25 MG TABLET PO SCH ×2 (08:23→17:47)
[2022-03-20] MEDS: LamoTRIgine 100 MG TABLET PO SCH (08:23)
[2022-03-20] MEDS: NEOMY SULF/BACITRAC ZN/POLY 15 GM TUBE TP SCH (08:24)
[2022-03-20 08:51] VITALS: BP 99/59
[2022-03-20] MEDS: MUPIROCIN OINT 2% 22 GM TUBE NS SCH ×2 (09:12→21:03)
--- NOTE | 2022-03-20 09:31 | NUR ---
WOUND CARE CONSULT: PT REFUSED SKIN ASSESSMENT AND P.T. AT THIS TIME. LIMITED ASSESSMENT DUE TO RT FOREARM SKIN TEAR NOTED TO HAVE SCANT BLEEDING. RECOMMENDATIONS MADE FOR SKIN PROTECTION AND WOUND CARE. DISCUSSED WITH NURSING STAFF. MD IN AGREEMENT WITH PLAN OF CARE.
[2022-03-20 10:38] LABS: BASOPHILS % (AUTO) 0.7 % (0.0-2.0); EOSINOPHILS % (AUTO) 0.5 % (0.0-6.0); HEMATOCRIT 21 % (39-51); LYMPHOCYTES # (AUTO) 0.4 K/uL (0.8-4.8); LYMPHOCYTES % (AUTO) 5.7 % (20.0-44.0); MEAN CORPUSCULAR HGB CONC 32 g/dl (31.0-36.0); MEAN CORPUSCULAR VOLUME 102 fL (80-96); MONOCYTES # (AUTO) 0.2 K/uL (0.1-1.30); NEUTROPHILS # (AUTO) 5.6 K/uL (1.8-8.9); NEUTROPHILS % (AUTO) 90.1 % (43.0-81.0); PLATELET COUNT (AUTO) 122 K/uL (150-450); RED BLOOD CELL COUNT(AUTO) 2.05 MIL/uL (4.5-6.0); WHITE BLOOD COUNT (AUTO) 6.2 K/uL (4.3-11.0)
[2022-03-20 10:54] LABS: HEMOGLOBIN 6.8 g/dL (13.5-17.5)
[2022-03-20 10:59] LABS: CALCIUM, SERUM 7.4 mg/dL (8.5-10.1); CARBON DIOXIDE 29 mmol/L (21-32); CHLORIDE 105 mmol/L (98-107); CREATININE 3.1 mg/dL (0.6-1.3); GLUCOSE 158 mg/dL (74-106); MAGNESIUM 2.3 mg/dL (1.8-2.4); PHOSPHORUS 1.5 mg/dL (2.5-4.9); SODIUM SERUM 137 mmol/L (136-145); UREA NITROGEN, BLOOD 29 mg/dL (7-18)
[2022-03-20] MEDS: VANCOMYCIN 500 MG in IV D5W 100 ML IV PRN (15:08)
[2022-03-20 16:00] VITALS: BP 120/63
[2022-03-20] MEDS ORDERED: K PHOS NEUTRAL 250 MG TABLET PO ONE (16:00)
--- NOTE | 2022-03-20 19:29 | NUR ---
RN CLOSING NOTE PATIENT AWAKE IN BED, A/OX3. NO S/S OF DISTRESS, BREATHING WITHOUT DIFFICULTY ON ROOM AIR. PATIENT NO C/O OF PAIN OR DISCOMFORT AT THIS TIME. R-WRIST #22 SL INTACT AND PATENT. PATIENT COMPLAINED OF DISCOMFORT AT IV SITE AFTER VANCOMYCIN WAS GIVEN, TRIED TO RE-INSERT ONE HOWEVER WITH NO SUCCESS. ALL DUE MEDS GIVEN. DIALYSIS DONE IN THE AFTERNOON WITH 800ML OUTPUT. PATIENT HEMOGLOBIN WAS BELOW THE NORMAL VALUE, NOTIFIED DR. SCHWARTZ WITH NEW ORDERS OF BLOOD TRANSFUSION. TELE READS SR 70. SAFETY MEASURES IN PLACE: BED LOCKED AND IN PLACE, RAILS UP X2, CALL LAWRENCE WITHIN REACH. WILL ENDORSE TO NEXT SHIFT FOR VALDO.
--- NOTE | 2022-03-20 19:30 | NUR ---
EXECUTIVE DIRECTOR OPENING NOTE RECEIVED PATIENT IN BED, WITH HOB ELEVATED, ALERT AND ORIENTED X3. NOTED WITH [place]. AFEBRILE AND NOT IN ANY FORM OF ACUTE DISTRESS. BREATHING EVEN AND NON LABORED. NO C/O PAIN OR DISCOMFORT AT THIS TIME. WITH P YARELI CATH IN R SIDE. PER REPORT, PATIENT NEEDS ANOTHER IV ACCESS IN PREPARATION FOR BT. SAFETY MEASURES IN PLACE. KEPT BED IN LOCKED AND IN LOW POSITION. SIDE RAILS UP X2. ADVISED YO USE THE CALL LIGHT WHEN IN NEED OF ASSISTANCE.
[2022-03-20 20:00] VITALS: BP 116/69
[2022-03-20] MEDS: TAMSULOSIN 0.4 MG CAP.SR.24H PO SCH (21:38)
[2022-03-20] MEDS: QUETIAPINE FUMARATE 100 MG TABLET PO SCH (21:38)
[2022-03-20] MEDS: *INSULIN REGULAR(HUMULIN R)HUM 100 UNIT/ML VIAL SQ PRN (21:55)
[2022-03-20] MEDS: INSULIN GLARGINE, 100 UNIT/ML CARTRIDGE SQ SCH (21:57)
[2022-03-20] MEDS: DIAZEPAM 2 MG TABLET PO SCH (22:29)
[2022-03-21] VITALS (9 sets, daily range): BP systolic 95–138; BP diastolic 45–65
--- NOTE | 2022-03-21 00:45 | NUR ---
BASEBALL SEWER HAND NOTE MEDIA MARKETING SPECIALIST LUISA CAME TO DO MIDLINE INSERTION. PER PATIENT'S REQUEST, JUST USE HIS R ARM. INSERTED X1 WITH 18G AND NOTED WITH GOOD BACK FLOW. PATIENT TOLERATED THE PROCEDURE WELL. ANNEALING FURNACE TENDER CAME AND RIVERA BLOOD AND AWAITING FOR RESULT FOR BLOOD TYPE AND CROSS MATCHING.
[2022-03-21 03:43] LABS: LYMPHOCYTES % (MANUAL) 6 % (16-48); MONOCYTES % (MANUAL) 3 % (0-11.0); NEUTROPHILS % (MANUAL) 91 (42-76)
--- NOTE | 2022-03-21 04:00 | NUR ---
MS RN NOTE STARTED BLOOD TRANSFUSION OF PRBC 1 UNIT AFTER CHECKING WITH BLOOD BANK CLS AND DOUBLE CHECKING WITH ANOTHER LICENSED NURSE GAYLE ALL DETAILS. INITIAL VITALS TAKEN AND FOLLOES: BP- 95/45, T- 97.6, P- 73, R- 18, O2 SAT ON RA- 99%. PATIENT IS ALERT AND RESPONSIVE AND NO SOB/WHEEZING NOTED. WILL CONTINUE TO MONITOR.
--- NOTE | 2022-03-21 04:15 | NUR ---
WOOD WEB WEAVING MACHINE OPERATOR NOTE PATIENT'S VITALS CHECKED AND FOLLOWS: BP- 109/49, P- 71, T- 97.4, R- 19, O2 SAT ON RA 99%, NO CHANGES IN MENTATION AND DENIES SOB/. TRANSFUSION STILL ON GOING. WILL CONTINUE TO MONITOR FOR ANY CHANGES.
--- NOTE | 2022-03-21 04:45 | NUR ---
TRANSPORTATION INSPECTOR NOTE PATIENT'S VITALS RECHECKED AND STILL WNL. DENIES ANY SOB/. PATIENT REMAINS ALERT AND ORIENTED.
--- NOTE | 2022-03-21 05:45 | NUR ---
HAND CIGAR MAKING SUPERVISOR NOTE PATIENT CHECKED AND IS SLEEPING. VITALS TAKEN AND FOLLOWS: BP- 103/52, T- 97.6, O2 SAT ON RA 100%, P- 61, R- 17. TRANSFUSION STILL ONGOING. WILL CONTINUE TO MONITOR.
[2022-03-21] MEDS: DEXTROSE 50%-WATER 50 ML DISP.SYRIN IV PRN (06:01)
--- NOTE | 2022-03-21 06:15 | NUR ---
SPECIAL EDUCATION SUPERINTENDENT NOTE CHECKED PATIENT AND NOTED WITH COLD CLAMMY SKIN. BG CHECKED AND NOTED WITH LOW BLOOD GLUCOSE LEVEL 19MG/DL. PATIENT IS EASY TO AROUSE AND RESPONSIVE. IMMEDIATELY INFORMED CHARGE NURSE AND ADMINISTERED D50 STAND BY ORDER FOR HYPOGLYCEMIA. RECHECKED BG AFTER 15 MINS AND WENT UP TO 49MG/DL. PATIENT IS CONVERSANT AND NO CHANGE IN MENTATION. WILL CONTINUE TO MONITOR.
--- NOTE | 2022-03-21 06:50 | NUR ---
SIZING SPONGER NOTE TRANSFUSED 1 UNIT OF PRBC AND COMPLETED AT AROUND 0645, VITALS TAKEN AND FOLLOWS: BP- 107/51, T- 97, O2 SAT ON RA- 100%, R- 17, P-59. NO SOB/. REMAINS AFEBRILE AND NO CHANGES IN MENTATION OF THIS MOMENT. TOLERATED WELL. RECHECKED BG AND WENT UP TO 83MG/DL. ENDORSED TO INCOMING SHIFT.
--- NOTE | 2022-03-21 07:00 | NUR ---
MS RN CLOSING NOTE PATIENT IN BED, ASLEEP BUT EASY TO AROUSE AND RESPONSIVE. ABLE TO MAKE NEEDS KNOWN. AFEBRILE AND NOT IN ANY FORM OF ACUTE DISTRESS. BREATHING EVEN AND NON LABORED. WITH IV ACCESS ON R UPPER ARM MIDLINE 18G-SL. S/P BT, TOLERATED THE PROCEDURE WELL. MONITORED FOR ANY S/SX. OF HYPOGLYCEMIA. MEDICATED ORDERED. SAFETY MEASURES IN PLACE. KEPT BED IN LOCKED AND IN LOW POSITION. SIDE RAILS UP X2. ADVISED TO USE THE CALL LIGHT WHEN IN NEED OF ASSISTANCE. ALL NURSING NEEDS ATTENDED. ENDORSED TO INCOMING SHIFT FOR CONTINUITY OF CARE.
--- NOTE | 2022-03-21 07:30 | NUR ---
INTERNAL AUDIT MANAGER OPENING NOTES RECEIVED PATIENT ON BED AWAKE AND A/O X2. ON ROOM AIR TOLERATING WELL. NO SOB NOTED. NOT IN DISTRESS. WITH NO COMPLAINTS OF PAIN OR DISCOMFORT AT THIS TIME. WITH IV ACCESS AT THE RIGHT UPPER ARM MIDLINE, SALINE LOCKED, PATENT AND INTACT. ON TELE MONITOR CURRENTLY READING SINUS RHYTHM AT 83BPM. SAFETY MEASURES IN PLACED. CALL LIGHT WITHIN REACH. BED ON LOWEST LOCKED POSITION, SIDE RAILS UP X2. WILL CONTINUE TO MONITOR.
[2022-03-21] MEDS: BLOOD SUGAR DIAGNOSTIC 1 EACH STRIP VI SCH ×4 (07:37→22:36)
[2022-03-21] MEDS: predniSONE 20 MG TABLET PO SCH (09:11)
[2022-03-21] MEDS: LamoTRIgine 100 MG TABLET PO SCH (09:12)
[2022-03-21] MEDS: MAGNESIUM OXIDE 400 MG TABLET PO SCH (09:12)
[2022-03-21] MEDS: QUETIAPINE FUMARATE 25 MG TABLET PO SCH ×2 (09:12→16:42)
[2022-03-21] MEDS: PANTOPRAZOLE 40 MG TABLET.DR PO SCH (09:12)
[2022-03-21] MEDS: NEOMY SULF/BACITRAC ZN/POLY 15 GM TUBE TP SCH (09:13)
[2022-03-21] MEDS: MUPIROCIN OINT 2% 22 GM TUBE NS SCH (09:28)
[2022-03-21] MEDS: CHLORHEXIDINE GLUCONATE 15 ML UDC MM SCH ×3 (09:28→17:00)
[2022-03-21 11:32] LABS: BASOPHILS % (AUTO) 0.2 % (0.0-2.0); EOSINOPHILS % (AUTO) 0.4 % (0.0-6.0); HEMATOCRIT 26 % (39-51); HEMOGLOBIN 8.2 g/dL (13.5-17.5); LYMPHOCYTES # (AUTO) 0.2 K/uL (0.8-4.8); LYMPHOCYTES % (AUTO) 3.1 % (20.0-44.0); MEAN CORPUSCULAR HGB CONC 31 g/dl (31.0-36.0); MEAN CORPUSCULAR VOLUME 102 fL (80-96); MONOCYTES # (AUTO) 0.3 K/uL (0.1-1.30); MONOCYTES % (AUTO) 4.7 % (2.0-12.0); NEUTROPHILS # (AUTO) 6.5 K/uL (1.8-8.9); NEUTROPHILS % (AUTO) 91.6 % (43.0-81.0); PLATELET COUNT (AUTO) 115 K/uL (150-450); RED BLOOD CELL COUNT(AUTO) 2.57 MIL/uL (4.5-6.0); WHITE BLOOD COUNT (AUTO) 7.1 K/uL (4.3-11.0)
[2022-03-21 11:35] LABS: CALCIUM, SERUM 6.8 mg/dL (8.5-10.1); CARBON DIOXIDE 26 mmol/L (21-32); CHLORIDE 104 mmol/L (98-107); CREATININE 2.6 mg/dL (0.6-1.3); MAGNESIUM 2.3 mg/dL (1.8-2.4); PHOSPHORUS 1.5 mg/dL (2.5-4.9); POTASSIUM 3.8 mmol/L (3.5-5.1); SODIUM SERUM 136 mmol/L (136-145); UREA NITROGEN, BLOOD 24 mg/dL (7-18)
[2022-03-21 11:51] LABS: GLUCOSE 45 mg/dL (74-106)
--- NOTE | 2022-03-21 12:00 | NUR ---
RN NOTE DR. SCHWARTZ MADE AWARE THAT PATIENT'S BLOOD SUGAR IS 40 AND ORDERED FOR D51/2NS TO BE INFUSED FOR THE PATIENT.
[2022-03-21] MEDS ORDERED: IV D5/0.45 NACL 1,000 ML IV ONE (12:30)
[2022-03-21] MEDS: INSULIN REGULAR, HUMAN 100 UNIT/ML 3 ML VIAL SQ PRN ×2 (12:36→17:26)
--- NOTE | 2022-03-21 18:20 | NUR ---
RN NOTE PATIENT REFUSED TO BE CLEANED AND FOR LINEN CHANGE.
--- NOTE | 2022-03-21 18:27 | NUR ---
CROWN BUFFER CLOSING NOTES PATIENT ON BED RESTING AND A/O X2. ON ROOM AIR TOLERATING WELL. NO SOB NOTED. NOT IN DISTRESS. WITH NO COMPLAINTS OF PAIN OR DISCOMFORT AT THIS TIME. WITH IV ACCESS AT THE RIGHT UPPER ARM MIDLINE, SALINE LOCKED, PATENT AND INTACT. ON TELE MONITOR CURRENTLY READING SINUS RHYTHM AT 87BPM. DUE MEDS GIVEN. SAFETY MEASURES IN PLACED. CALL LIGHT WITHIN REACH. BED ON LOWEST LOCKED POSITION, SIDE RAILS UP X2. WILL ENDORSE TO NEXT SHIFT FOR VALDO.
--- NOTE | 2022-03-21 19:30 | NUR ---
michael rn opening received patient in bed, a/ox3. no s/s of apparent distress on room air. denies pain at this time. reading sr with 89 bpm on the tele monitor. patient is noted to have r.fa skin tear, wrapped in kerlix. patient asking food at this time-- needs attended. r.ua midline noted in place running d5 1/2 ns @45mls/hr. call light within reach. safety in place. will continue with patient's plan of care.
[2022-03-21] MEDS: QUETIAPINE FUMARATE 100 MG TABLET PO SCH (22:26)
[2022-03-21] MEDS: TAMSULOSIN 0.4 MG CAP.SR.24H PO SCH (22:26)
[2022-03-21] MEDS: DIAZEPAM 2 MG TABLET PO SCH (22:31)
[2022-03-21] MEDS: *INSULIN REGULAR(HUMULIN R)HUM 100 UNIT/ML VIAL SQ PRN (22:39)
[2022-03-22] VITALS: BP 156/74
[2022-03-22 04:00] VITALS: BP 157/74
[2022-03-22 05:17] LABS: BAND % (MANUAL) 3 % (0.0-5.0); BASOPHILS % (MANUAL) 0 % (0.0-2.0); EOSINOPHILS % (MANUAL) 0 % (0-4); LYMPHOCYTES % (MANUAL) 3 % (16-48); MONOCYTES % (MANUAL) 5 % (0-11.0); NEUTROPHILS % (MANUAL) 89 (42-76)
--- NOTE | 2022-03-22 05:30 | NUR ---
noc rn note patient adamantly refused to be cleaned, repositioned and change. per patient "First of, I am finally very comfortable after how many days of not being comfortable so absolutely NOT!" etc. explained to patient the risk and benefit of repositioning at lease. Patient acknowledge and for patient "I appreciate your concern and I know you are just doing your job but [place] and I can refused". dressing change on his forearm instead.
[2022-03-22] MEDS: BLOOD SUGAR DIAGNOSTIC 1 EACH STRIP VI SCH ×4 (06:36→22:36)
[2022-03-22] MEDS: *INSULIN REGULAR(HUMULIN R)HUM 100 UNIT/ML VIAL SQ PRN ×2 (06:41→22:44)
[2022-03-22 07:00] VITALS: BP 112/70
--- NOTE | 2022-03-22 07:04 | NUR ---
noc rn closing note patient in bed, intermittent with his sleep. a/ox2-3. hyperverbal. no s/s of apparent distress on room air. denies pain at this time. Rt. upper arm midline 18 g running D51/2 ns @45mls/hr. reading sr with 66 bpm on the tele monitor. all needs attended. all scheduled medications administered. call light within reach. safety kept in place the whole shift. patient for HD this am, will endorse to morning shift rn for continuity of patient care.
[2022-03-22 07:07] LABS: BASOPHILS % (AUTO) 0.6 % (0.0-2.0); EOSINOPHILS % (AUTO) 0.7 % (0.0-6.0); HEMATOCRIT 23 % (39-51); HEMOGLOBIN 7.8 g/dL (13.5-17.5); LYMPHOCYTES # (AUTO) 0.4 K/uL (0.8-4.8); LYMPHOCYTES % (AUTO) 7.3 % (20.0-44.0); MEAN CORPUSCULAR HGB CONC 33 g/dl (31.0-36.0); MEAN CORPUSCULAR VOLUME 96 fL (80-96); MONOCYTES # (AUTO) 0.4 K/uL (0.1-1.30); MONOCYTES % (AUTO) 7.3 % (2.0-12.0); NEUTROPHILS # (AUTO) 4.9 K/uL (1.8-8.9); NEUTROPHILS % (AUTO) 84.1 % (43.0-81.0); PLATELET COUNT (AUTO) 137 K/uL (150-450); RED BLOOD CELL COUNT(AUTO) 2.41 MIL/uL (4.5-6.0); WHITE BLOOD COUNT (AUTO) 5.9 K/uL (4.3-11.0)
[2022-03-22 07:14] LABS: CALCIUM, SERUM 6.4 mg/dL (8.5-10.1); CARBON DIOXIDE 24 mmol/L (21-32); CHLORIDE 101 mmol/L (98-107); CREATININE 3.1 mg/dL (0.6-1.3); GLUCOSE 203 mg/dL (74-106); MAGNESIUM 2.4 mg/dL (1.8-2.4); PHOSPHORUS 1.7 mg/dL (2.5-4.9); POTASSIUM 3.9 mmol/L (3.5-5.1); SODIUM SERUM 133 mmol/L (136-145); UREA NITROGEN, BLOOD 36 mg/dL (7-18)
[2022-03-22] MEDS: predniSONE 20 MG TABLET PO SCH (09:42)
[2022-03-22] MEDS: MAGNESIUM OXIDE 400 MG TABLET PO SCH (09:43)
[2022-03-22] MEDS: QUETIAPINE FUMARATE 25 MG TABLET PO SCH ×2 (09:43→17:28)
[2022-03-22] MEDS: LamoTRIgine 100 MG TABLET PO SCH (09:43)
[2022-03-22] MEDS: CHLORHEXIDINE GLUCONATE 15 ML UDC MM SCH ×2 (09:43→17:29)
[2022-03-22] MEDS: PANTOPRAZOLE 40 MG TABLET.DR PO SCH (09:43)
[2022-03-22] MEDS: NEOMY SULF/BACITRAC ZN/POLY 15 GM TUBE TP SCH (09:44)
[2022-03-22 12:00] VITALS: BP 166/69
[2022-03-22 16:00] VITALS: BP 127/63
[2022-03-22 17:32] LABS: C-REACTIVE PROTEIN 2.3 mg/dL (0.0-0.9)
--- NOTE | 2022-03-22 19:30 | NUR ---
AERODYNAMIC CONSULTANT OPENING NOTE RECEIVED PATIENT IN BED AWAKE. PT A/O X2, ABLE TO VERBALIZE NEEDS. ON ROOM AIR TOLERATING WELL. NO SOB, NO ACUTE DISTRESS NOTED. NO COMPLAINT OF PAIN OR DISCOMFORT AT THIS TIME. IV ACCESS TO RIGHT UPPER ARM MIDLINE, SALINE LOCKED, PATENT AND INTACT. ON TELE MONITOR CURRENTLY READING SINUS RHYTHM. SAFETY MEASURES IN PLACED. CALL LIGHT WITHIN REACH, BED IN LOWEST LOCKED POSITION, SIDE RAILS UP X2. WILL CONTINUE TO MONITOR.
[2022-03-22 20:00] VITALS: BP 143/89
[2022-03-22] MEDS: TAMSULOSIN 0.4 MG CAP.SR.24H PO SCH (22:35)
[2022-03-22] MEDS: DIAZEPAM 2 MG TABLET PO SCH (22:36)
[2022-03-22] MEDS: QUETIAPINE FUMARATE 100 MG TABLET PO SCH (22:36)
--- NOTE | 2022-03-23 07:15 | NUR ---
MS RN CLOSING NOTE PATIENT IN BED, ASLEEP BUT EASY TO AROUSE AND RESPONSIVE. ABLE TO MAKE NEEDS KNOWN. AFEBRILE AND NOT IN ANY FORM OF ACUTE DISTRESS. BREATHING EVEN AND NON LABORED. WITH IV ACCESS ON R UPPER ARM MIDLINE 18G-SL. S/P BT, TOLERATED THE PROCEDURE WELL. MONITORED FOR ANY S/SX. OF HYPOGLYCEMIA. MEDICATED ORDERED. SAFETY MEASURES IN PLACE. KEPT BED IN LOCKED AND IN LOW POSITION. SIDE RAILS UP X2. ADVISED TO USE THE CALL LIGHT WHEN IN NEED OF ASSISTANCE. WILL ENDORSE TO INCOMING SHIFT NURSE FOR CONTINUITY OF CARE.
[2022-03-23] MEDS: BLOOD SUGAR DIAGNOSTIC 1 EACH STRIP VI SCH ×5 (07:30→22:42)
[2022-03-23 08:00] VITALS: BP 111/47
[2022-03-23] MEDS: LamoTRIgine 100 MG TABLET PO SCH (09:28)
[2022-03-23] MEDS: QUETIAPINE FUMARATE 25 MG TABLET PO SCH ×2 (09:28→17:11)
[2022-03-23] MEDS: predniSONE 20 MG TABLET PO SCH (09:28)
[2022-03-23] MEDS: MAGNESIUM OXIDE 400 MG TABLET PO SCH (09:28)
[2022-03-23] MEDS: CHLORHEXIDINE GLUCONATE 15 ML UDC MM SCH ×2 (09:28→17:11)
[2022-03-23] MEDS: PANTOPRAZOLE 40 MG TABLET.DR PO SCH (09:28)
[2022-03-23] MEDS: NEOMY SULF/BACITRAC ZN/POLY 15 GM TUBE TP SCH (09:28)
[2022-03-23 12:00] VITALS: BP 153/69
[2022-03-23 16:00] VITALS: BP 153/73
[2022-03-23 16:13] LABS: BASOPHILS % (AUTO) 0.3 % (0.0-2.0); EOSINOPHILS % (AUTO) 0.2 % (0.0-6.0); HEMATOCRIT 27 % (39-51); HEMOGLOBIN 8.3 g/dL (13.5-17.5); LYMPHOCYTES # (AUTO) 0.1 K/uL (0.8-4.8); LYMPHOCYTES % (AUTO) 1.9 % (20.0-44.0); MEAN CORPUSCULAR HGB CONC 31 g/dl (31.0-36.0); MEAN CORPUSCULAR VOLUME 105 fL (80-96); MONOCYTES # (AUTO) 0.2 K/uL (0.1-1.30); MONOCYTES % (AUTO) 4.1 % (2.0-12.0); NEUTROPHILS # (AUTO) 5.4 K/uL (1.8-8.9); NEUTROPHILS % (AUTO) 93.5 % (43.0-81.0); PLATELET COUNT (AUTO) 120 K/uL (150-450); RED BLOOD CELL COUNT(AUTO) 2.55 MIL/uL (4.5-6.0); WHITE BLOOD COUNT (AUTO) 5.8 K/uL (4.3-11.0)
[2022-03-23 16:40] LABS: CARBON DIOXIDE 23 mmol/L (21-32); CHLORIDE 100 mmol/L (98-107); CREATININE 3.3 mg/dL (0.6-1.3); GLUCOSE 250 mg/dL (74-106); MAGNESIUM 2.4 mg/dL (1.8-2.4); PHOSPHORUS 1.9 mg/dL (2.5-4.9); POTASSIUM 4.1 mmol/L (3.5-5.1); SODIUM SERUM 130 mmol/L (136-145); UREA NITROGEN, BLOOD 34 mg/dL (7-18)
[2022-03-23] MEDS: INSULIN REGULAR, HUMAN 100 UNIT/ML 3 ML VIAL SQ PRN (17:44)
[2022-03-23 20:00] VITALS: BP 108/84
[2022-03-23] MEDS: DIAZEPAM 2 MG TABLET PO SCH (22:39)
[2022-03-23] MEDS: QUETIAPINE FUMARATE 100 MG TABLET PO SCH (22:40)
[2022-03-23] MEDS: TAMSULOSIN 0.4 MG CAP.SR.24H PO SCH (22:40)
[2022-03-23] MEDS: *INSULIN REGULAR(HUMULIN R)HUM 100 UNIT/ML VIAL SQ PRN (22:45)
[2022-03-24] VITALS: BP 113/50
[2022-03-24 03:38] LABS: BAND % (MANUAL) 6 % (0.0-5.0); LYMPHOCYTES % (MANUAL) 3 % (16-48); MONOCYTES % (MANUAL) 6 % (0-11.0); NEUTROPHILS % (MANUAL) 85 (42-76)
[2022-03-24 03:39] LABS: BASOPHILS % (MANUAL) 0 % (0.0-2.0); EOSINOPHILS % (MANUAL) 0 % (0-4)
[2022-03-24 05:43] VITALS: BP 112/65
--- NOTE | 2022-03-24 07:15 | NUR ---
MACHINE CERAMIC [employer]ATER CLOSING NOTE PT LEFT IN BED, IN STABLE CONDITION. WILL ENDORSE TO AM SHIFT NURSE FOR VALDO.
[2022-03-24] MEDS: BLOOD SUGAR DIAGNOSTIC 1 EACH STRIP VI SCH ×3 (07:55→16:37)
--- NOTE | 2022-03-24 07:57 | NUR ---
RN OPENING NOTE- PT IN BED AWAKE. A/O X PERSON PURPOSE. ON ROOM AIR TOLERATING WELL. NO SOB, NO ACUTE DISTRESS NOTED. DENIES PAIN AT THIS TIME. IV ACCESS TO RIGHT UPPER ARM MIDLINE, PATENT AND INTACT. ON TELE MONITOR CURRENTLY READING SINUS RHYTHM. SAFETY MEASURES IN PLACED. CALL LIGHT WITHIN REACH, BED IN LOWEST LOCKED POSITION, SIDE RAILS UP X2. WILL CONTINUE TO MONITOR ./ ASSIST
[2022-03-24 08:04] LABS: CALCIUM, SERUM 7.3 mg/dL (8.5-10.1); CARBON DIOXIDE 23 mmol/L (21-32); CHLORIDE 103 mmol/L (98-107); CREATININE 3.8 mg/dL (0.6-1.3); GLUCOSE 71 mg/dL (74-106); POTASSIUM 3.9 mmol/L (3.5-5.1); SODIUM SERUM 135 mmol/L (136-145); UREA NITROGEN, BLOOD 47 mg/dL (7-18)
[2022-03-24 08:07] LABS: IMMUNOGLOBULIN A, SERUM 116 mg/dL (61-437); IMMUNOGLOBULIN G, SERUM 530 mg/dL (603-1613); IMMUNOGLOBULIN M, SERUM 123 mg/dL (15-143)
[2022-03-24] MEDS: PANTOPRAZOLE 40 MG TABLET.DR PO SCH ×2 (08:24→12:07)
[2022-03-24 08:32] VITALS: BP 109/70
[2022-03-24 08:48] LABS: MAGNESIUM 2.8 mg/dL (1.8-2.4); PHOSPHORUS 2.5 mg/dL (2.5-4.9)
[2022-03-24 11:06] LABS: *ANA ANTI-CENTROMERE B AB <0.2 AI (0.0-0.9); *ANA ANTI-DNA(DS) AB, QN <1 IU/mL (0-9); *ANA ANTI-JO-1 <0.2 AI (0.0-0.9); *ANA ANTICHROMATIN ANTIBODY 0.6 AI (0.0-0.9); *ANA RNP ANTIBODIES <0.2 AI (0.0-0.9); *ANA SJOGREN'S ANTI-SS-A <0.2 AI (0.0-0.9); *ANA SJOGREN'S ANTI-SS-B 0.2 AI (0.0-0.9); *ANAANTI-SCLERODERMA-70 AB <0.2 AI (0.0-0.9); *ANASMITH AB <0.2 AI (0.0-0.9)
[2022-03-24 11:36] LABS: BASOPHILS % (AUTO) 0.3 % (0.0-2.0); EOSINOPHILS % (AUTO) 0.8 % (0.0-6.0); HEMATOCRIT 23 % (39-51); HEMOGLOBIN 7.8 g/dL (13.5-17.5); LYMPHOCYTES # (AUTO) 0.4 K/uL (0.8-4.8); LYMPHOCYTES % (AUTO) 8.8 % (20.0-44.0); MEAN CORPUSCULAR HGB CONC 34 g/dl (31.0-36.0); MEAN CORPUSCULAR VOLUME 96 fL (80-96); MONOCYTES # (AUTO) 0.4 K/uL (0.1-1.30); MONOCYTES % (AUTO) 9.3 % (2.0-12.0); NEUTROPHILS # (AUTO) 3.7 K/uL (1.8-8.9); NEUTROPHILS % (AUTO) 80.8 % (43.0-81.0); PLATELET COUNT (AUTO) 120 K/uL (150-450); RED BLOOD CELL COUNT(AUTO) 2.37 MIL/uL (4.5-6.0); WHITE BLOOD COUNT (AUTO) 4.5 K/uL (4.3-11.0)
[2022-03-24 11:52] VITALS: BP 128/97
[2022-03-24] MEDS: INSULIN REGULAR, HUMAN 100 UNIT/ML 3 ML VIAL SQ PRN ×2 (12:06→16:39)
[2022-03-24] MEDS: MAGNESIUM OXIDE 400 MG TABLET PO SCH (12:07)
[2022-03-24] MEDS: CHLORHEXIDINE GLUCONATE 15 ML UDC MM SCH ×2 (12:07→16:38)
[2022-03-24] MEDS: predniSONE 20 MG TABLET PO SCH (12:08)
[2022-03-24] MEDS: LamoTRIgine 100 MG TABLET PO SCH (12:08)
[2022-03-24] MEDS: QUETIAPINE FUMARATE 25 MG TABLET PO SCH ×2 (12:33→16:37)
[2022-03-24] MEDS: NEOMY SULF/BACITRAC ZN/POLY 15 GM TUBE TP SCH (12:39)
[2022-03-24 15:57] VITALS: BP 126/56
--- NOTE | 2022-03-24 18:48 | NUR ---
RN CLOSING NOTE- PT FOR DC THIS EVENING, REPORT PHONED TO UGO AT FACILITY. PT IN BED AWAKE. A/O X PERSON PURPOSE. ON ROOM AIR TOLERATING WELL. NO SOB, NO ACUTE DISTRESS NOTED. DENIES PAIN AT THIS TIME.. SAFETY MEASURES IN PLACED. CALL LIGHT WITHIN REACH, BED IN LOWEST LOCKED POSITION, SIDE RAILS UP X2. WILL CONTINUE TO MONITOR ./ ASSIST
--- NOTE | 2022-03-24 19:17 | NUR ---
RN NOTE- DC AT THIS TIME TO [facility]. REPORT PHONED IN. IV REMOVED, WRISTBAND REMOVED. REPORT GIVEN UNDERSTOOD. ESCORTED OFF UNIT BY AMBULANCE STAFF
[2022-03-26 12:06] LABS: *SPE A/G RATIO 1.3 (0.7-1.7); *SPE ALPHA-1-GLOBULIN 0.3 g/dL (0.0-0.4); *SPE ALPHA-2-GLOBULIN 0.7 g/dL (0.4-1.0); *SPE BETA GLOBULIN 0.7 g/dL (0.7-1.3); *SPE M-SPIKE Not Observed g/dL (Not Observed)
== END 2022-03-24 19:25 | DRG 981 ==
LOC: ER 07:07 → TELE 21:27
PROVIDERS: ADMIT Internal Medicine; ATTEND Student in an Organized Health Care Education/Training Program
PROC: 0KBC0ZZ Excision of Right Hand Muscle, Open Approach (ICD-10-PCS; principal; 2022-03-13)
PROC: 5A1D70Z Performance of Urinary Filtration, Intermittent, Less than 6 Hours Per Day (ICD-10-PCS; 2022-03-14)
PROC: 30233N1 Transfusion of Nonautologous Red Blood Cells into Peripheral Vein, Percutaneous Approach (ICD-10-PCS; 2022-03-20)
PROC: 05H533Z Insertion of Infusion Device into Right Subclavian Vein, Percutaneous Approach (ICD-10-PCS; 2022-03-21)
PROC: B546ZZA Ultrasonography of Right Subclavian Vein, Guidance (ICD-10-PCS; 2022-03-21)
DX: J15.6 Pneumonia due to other Gram-negative bacteria (principal); E43 Unspecified severe protein-calorie malnutrition; G93.41 Metabolic encephalopathy; N18.6 End stage renal disease; I12.0 Hypertensive chronic kidney disease with stage 5 chronic kidney disease or end stage renal disease; D61.818 Other pancytopenia; R64 Cachexia; F31.10 Bipolar disorder, current episode manic without psychotic features, unspecified; Z79.4 Long term (current) use of insulin; G40.909 Epilepsy, unspecified, not intractable, without status epilepticus; E11.22 Type 2 diabetes mellitus with diabetic chronic kidney disease; D53.9 Nutritional anemia, unspecified; D63.8 Anemia in other chronic diseases classified elsewhere; D72.829 Elevated white blood cell count, unspecified; F41.9 Anxiety disorder, unspecified; H91.10 Presbycusis, unspecified ear; F25.9 Schizoaffective disorder, unspecified; I25.10 Atherosclerotic heart disease of native coronary artery without angina pectoris; Z99.2 Dependence on renal dialysis; N40.0 Benign prostatic hyperplasia without lower urinary tract symptoms; E83.9 Disorder of mineral metabolism, unspecified; S61.210A Laceration without foreign body of right index finger without damage to nail, initial encounter; X58.XXXA Exposure to other specified factors, initial encounter; Y93.9 Activity, unspecified; Y92.009 Unspecified place in unspecified non-institutional (private) residence as the place of occurrence of the external cause; Z22.322 Carrier or suspected carrier of Methicillin resistant Staphylococcus aureus; R62.7 Adult failure to thrive; D69.6 Thrombocytopenia, unspecified; N28.1 Cyst of kidney, acquired; E87.79 Other fluid overload; Z68.20 Body mass index [BMI] 20.0-20.9, adult; R91.8 Other nonspecific abnormal finding of lung field
CPT/HCPCS: 36415; 71045-TC; 71250-TC; 76700-TC; 80048-TC; 80202-TC; 81001; 82378; 82607-TC; 82728-TC; 82784; 82962-TC; 83540-TC; 83615-TC; 83735-TC; 84100-TC; 84155; 84165; 85025-TC; 86140-TC; 86225; 86235; 86334; 86431-TC; 86480; 86706; 86803; 86850-TC; 87081-TC; 87340; 90935-TC; 92526; 92611-TC; A4216; A4349; C9803; G0378; J0692; J1815; J2405; J3370; J7030; J7050; J7060; P9016; P9047